=== PATIENT | male | born 1960 | race African-American/Black ===

== ENCOUNTER 2020-07-01 12:39 | Inpatient (IN) | payer MEDICARE, OTHER ==
[~2020-07-01] VITALS: Ht 180.3 cm; Wt 77.6 kg
--- NOTE | 2020-07-01 12:50 | NUR ---
tisha, from [facility], hyperglycemia BS 346. PATIENT A/OX4, BREATHING EVEN AND UNLABORED, NO SOB NOTED. PLACED ON THE PAINT STOCK CLERK. NEEDS ATTENDED. KEPT COMFORTABLE.
[2020-07-01] MEDS ORDERED: IV NS 0.9% 1,000 ML BAG IV ONE (13:30)
[2020-07-01 13:38] LABS: BASOPHILS % (AUTO) 0.4 % (0.0-2.0); EOSINOPHILS % (AUTO) 5.6 % (0.0-6.0); HEMATOCRIT 40 % (39-51); HEMOGLOBIN 13.3 g/dL (13.5-17.5); LYMPHOCYTES # (AUTO) 2.1 /CMM (0.8-4.8); LYMPHOCYTES % (AUTO) 27.1 % (20.0-44.0); MEAN CORPUSCULAR HGB CONC 33 g/dl (31.0-36.0); MEAN CORPUSCULAR VOLUME 94 fL (80-96); MONOCYTES # (AUTO) 0.9 /CMM (0.1-1.30); MONOCYTES % (AUTO) 10.8 % (2.0-12.0); NEUTROPHILS # (AUTO) 4.4 /CMM (1.8-8.9); NEUTROPHILS % (AUTO) 56.1 % (43.0-81.0); PLATELET COUNT (AUTO) 241 /CMM (150-450); RED BLOOD CELL COUNT(AUTO) 4.31 MIL/uL (4.5-6.0); WHITE BLOOD COUNT (AUTO) 7.9 K/uL (4.3-11.0)
[2020-07-01 13:48] LABS: CALCIUM, SERUM 8.8 mg/dL (8.5-10.1); CARBON DIOXIDE 27 mmol/L (21-32); CHLORIDE 100 mmol/L (98-107); GLUCOSE 339 mg/dL (74-106); SODIUM SERUM 134 mmol/L (136-145); UREA NITROGEN, BLOOD 10 mg/dL (7-18)
[2020-07-01 13:53] LABS: ALANINE AMINOTRANSFERASE 18 U/L (12-78); ALBUMIN 3.3 g/dL (3.4-5.0); ALKALINE PHOSPHATASE 85 U/L (46-116); ASPARTATE AMINOTRANSFERASE 14 U/L (15-37); BILIRUBIN,DIRECT 0.1 mg/dL (0.0-0.2); BILIRUBIN,TOTAL 0.4 mg/dL (0.2-1.0); LIPASE 212 U/L (73-393); TOTAL PROTEIN, SERUM 6.9 g/dL (6.4-8.2)
[2020-07-01 14:11] LABS: BILIRUBIN,URINE Negative (NEGATIVE); COLOR,URINE YELLOW (YELLOW); LEUKOCYTE ESTERASE ,URINE Negative (NEGATIVE); NITRITE, URINE Negative (NEGATIVE); PROTEIN,URINE Negative (NEGATIVE); UGLUCOSE 500 MG/DL mg/dL (NEGATIVE); UROBILINOGEN,URINE 0.2 EU/dL (0.2)
[2020-07-01] MEDS ORDERED: FLUO20CA36 PO (14:17)
[2020-07-01] MEDS ORDERED: QUET25TA PO (14:17)
[2020-07-01] MEDS ORDERED: ZOLPIDEM TARTRATE 5 MG TABLET PO PRN (14:30)
[2020-07-01] MEDS ORDERED: Z GUARD REMEDY 2 OZ OINT TP PRN (14:30)
[2020-07-01] MEDS ORDERED: INSULIN REGULAR, HUMAN 100 UNIT/ML 3 ML VIAL SQ PRN (14:30)
[2020-07-01] MEDS ORDERED: ONDANSETRON HCL/PF 4 MG/2 ML VIAL IVP PRN (14:30)
[2020-07-01] MEDS ORDERED: DEXTROSE 50%-WATER 50 ML DISP.SYRIN IV PRN (14:30)
[2020-07-01] MEDS ORDERED: MAGNESIUM HYDROXIDE 30 ML UDC PO PRN (14:30)
[2020-07-01] MEDS ORDERED: ACETAMINOPHEN 325 MG TABLET PO PRN (14:30)
[2020-07-01] MEDS ORDERED: IV NS 0.9% 1,000 ML IV PRN (14:30)
[2020-07-01] MEDS ORDERED: HYDROCODONE/APAP 5/325MG TABLET PO PRN (14:30)
[2020-07-01] MEDS ORDERED: MAG HYDROX/AL HYDROX/SIMETH 30 ML UDC PO PRN (14:30)
--- NOTE | 2020-07-01 14:36 | NUR ---
COVID SWAB SENT.
--- NOTE | 2020-07-01 18:24 | NUR ---
PROVIDED DINNER TRAY. PATIENT A/OX4,RESTING. NO DISTRESS NOTED.
--- NOTE | 2020-07-01 18:50 | NUR ---
room 105, give report after shift per house sup Addendum: 07/01/20 at 1850 by JEANE room 109, give report after shift per house sup
[2020-07-01] MEDS: BLOOD SUGAR DIAGNOSTIC 1 EACH STRIP VI SCH ×2 (19:24→22:11)
--- NOTE | 2020-07-01 19:36 | NUR ---
ASSIGNED BED 109
--- NOTE | 2020-07-01 20:11 | NUR ---
REPORT GIVEN TO ROLANDO GEE FOR [facility].
[2020-07-01 20:20] VITALS: BP 131/76
--- NOTE | 2020-07-01 20:20 | NUR ---
RN ADMITTING NOTE RECEIVED PATIENT FROM ER VIA [facility] ACCOMPANIED BY GIANCARLO GEE AND 1 OTHER ER STAFF; ADMITTING DIAGNOSIS OF FAILURE TO THRIVE, PCR RESULT PENDING. PATIENT AWAKE, ALERT AND ORIENTED X4. DENIES PAIN. IN NO S/SX OF ACUTE DISTRESS AT THIS TIME. NO SOB NOTED. PATIENT'S BREATHING IS EVEN AND UNLABORED. SATURATION 98% ON ROOM AIR, HR IS 78. NOTED IV SITE AT LAC 18G, PATENT AND FLUSHING WELL. NO S/S OF INFECTION OR INFILTRATION. NO SKIN ISSUES NOTED. PATIENT KEPT CLEAN , DRY AND COMFORTABLE. SAFETY MEASURES IMPLEMENTED. HEAD OF BED ELEVATED. BED IS LOCKED, IN LOWEST POSITION AND SIDE RAILS UP. CALL LIGHT WITHIN REACH OF THE PATIENT. ISOLATION PRECAUTIONS IN PLACE. WILL CONTINUE TO MONITOR AND REASSESS FOR ANY CHANGES. WILL ATTEND TO ALL MD ADMITTING ORDERS.
[2020-07-01] MEDS: *INSULIN REGULAR(HUMULIN R)HUM 100 UNIT/ML VIAL SQ PRN (22:12)
[2020-07-02 06:06] LABS: BASOPHILS % (AUTO) 0.5 % (0.0-2.0); EOSINOPHILS % (AUTO) 6.3 % (0.0-6.0); HEMATOCRIT 40 % (39-51); HEMOGLOBIN 13.2 g/dL (13.5-17.5); LYMPHOCYTES % (AUTO) 29.2 % (20.0-44.0); MEAN CORPUSCULAR HGB CONC 33 g/dl (31.0-36.0); MEAN CORPUSCULAR VOLUME 93 fL (80-96); MONOCYTES # (AUTO) 0.8 /CMM (0.1-1.30); MONOCYTES % (AUTO) 11.4 % (2.0-12.0); NEUTROPHILS # (AUTO) 3.6 /CMM (1.8-8.9); NEUTROPHILS % (AUTO) 52.6 % (43.0-81.0); PLATELET COUNT (AUTO) 242 /CMM (150-450); RED BLOOD CELL COUNT(AUTO) 4.28 MIL/uL (4.5-6.0); WHITE BLOOD COUNT (AUTO) 6.9 K/uL (4.3-11.0)
[2020-07-02 06:32] LABS: CALCIUM, SERUM 8.5 mg/dL (8.5-10.1); CREATININE 0.9 mg/dL (0.6-1.3); MAGNESIUM 1.9 mg/dL (1.8-2.4); PHOSPHORUS 3.8 mg/dL (2.5-4.9)
[2020-07-02] MEDS: BLOOD SUGAR DIAGNOSTIC 1 EACH STRIP VI SCH ×4 (07:30→21:03)
[2020-07-02 08:00] VITALS: BP 120/83
[2020-07-02] MEDS: FLUOXETINE HCL 20 MG CAPSULE PO SCH (09:18)
[2020-07-02] MEDS: *INSULIN REGULAR(HUMULIN R)HUM 100 UNIT/ML VIAL SQ PRN ×3 (09:22→21:03)
[2020-07-02 09:57] LABS: EOSINOPHILS % (MANUAL) 5 % (0-4); LYMPHOCYTES % (MANUAL) 22 % (16-48); MONOCYTES % (MANUAL) 14 % (0-11.0); NEUTROPHILS % (MANUAL) 59 (42-76)
--- NOTE | 2020-07-02 13:53 | NUR ---
alert, oriented , did not know exactly when he is hospitalized, a resident of [facility] x 4mos. first bs this am, 197, iv fluid not running when first seen. Connected him to the pump, until just now, iv site got infiltrated. attempted to reinsert a new HL, so he can get all the fluids he needs, adamantly refused. " i have enough fluid, i dont want anything on my arm". his request honored, and left message to the attending, dr Corbett
[2020-07-02 16:00] VITALS: BP 132/74
[2020-07-02 17:49] VITALS: BP 132/74
--- NOTE | 2020-07-02 17:56 | NUR ---
No return text from the attending, concerning a new HL, patient still refused . Anx[facility] to get out of here " [facility], it is [facility] Holiday, reoriented him the holiday will be next Friday, still insists to go back to the NH. Per attending, he will speak to the patient in am. (already spoke to the patient today)
--- NOTE | 2020-07-02 19:30 | NUR ---
RN OPENING NOTE REPORT RECIEVED FROM TRINA GEE. PATIENT IN BED IN NO APPARENT DISTRESS. PATIENT REFUSING NEW HEPLOCK INSERTION REFUSING IV FLUIDS. PT STATES, "IM SUPPOSED TO LEAVE TOMORROW." PT ALSO REFUSING EVENING VITAL SIGNS, STATES "JUST LEAVE ME ALONE. IM OK I JUST WAITING TO GO HOME." PER REPORT NURSE NOTIFIED THE DOCTOR. WILL CONT TO MONITOR PATIENT PER PATIENT HE ATE 100% OF DINNER. PT DRINKING WATER AND FLUIDS.
[2020-07-02] MEDS: QUETIAPINE FUMARATE 25 MG TABLET PO SCH (21:03)
[2020-07-03 04:00] VITALS: BP 117/69
[2020-07-03] MEDS: *INSULIN REGULAR(HUMULIN R)HUM 100 UNIT/ML VIAL SQ PRN ×4 (07:47→22:00)
[2020-07-03 08:00] VITALS: BP 127/78
[2020-07-03] MEDS: FLUOXETINE HCL 20 MG CAPSULE PO SCH (08:01)
[2020-07-03] MEDS: BLOOD SUGAR DIAGNOSTIC 1 EACH STRIP VI SCH ×4 (08:01→22:13)
--- NOTE | 2020-07-03 09:30 | NUR ---
RN OPENING NOTE PATIENT IS IN BED WITH HOB AT SEMI FOWLERS POSITION. PATIENT IS ON ROOM AIR WITH NO SIGNS OF LABORED BREATHING. PATIENT IS AOX3. BED IS LOCKED IN THE LOWEST POSITION, 3 GUARD RAILS RAISED, CALL KRUEGER WITHIN REACH, AND ALL HOSPITAL SAFETY PRECAUTIONS ARE BEING FOLLOWED. WILL CONTINUE TO MONITOR THROUGHOUT SHIFT.
--- NOTE | 2020-07-03 11:55 | NUR ---
RN NOTE PATIENT REFUSED IV ACCESS. EDUCATED PATIENT ON IMPORTANCE OF IV HYDRATION. PATIENT STILL REFUSED.
[2020-07-03 16:00] VITALS: BP 142/81
--- NOTE | 2020-07-03 19:08 | NUR ---
RN NOTE PATIENT REMAINED STABLE THROUGHOUT SHIFT AND ALL DUE MEDS GIVEN. CURRENTLY ON ROOM AIR WITH NO SIGNS OF LABORED BREATHING. WILL ENDORSE TO SUPERVISOR AIRCRAFT CLEANING RN FOR [facility].
[2020-07-03 20:00] VITALS: BP 134/81
--- NOTE | 2020-07-03 20:43 | NUR ---
RN NOTE PATIENT IN BED AWAKE. A/O X3, ABLE TO MAKE NEEDS KNOWN. ON ROOM AIR, O2 SAT 97%. NO S/S OF ANY RESPIRATORY DISTRESS. DENIES ANY PAIN AT THIS TIME. NO IV ACCES, PER REPORT PATIENT IS REFUSING. BED LOCKED AND IN LOWEST POSITION. CALL LIGHT WITHIN REACH. ALL NEEDS ANTICIPATED.
[2020-07-03] MEDS: QUETIAPINE FUMARATE 25 MG TABLET PO SCH (22:13)
--- NOTE | 2020-07-03 22:30 | NUR ---
OFFERED PATIENT TO INSERT IV ACCESS AND PATIENT REFUSED. RISKS AND BENEFITS EXPLAINED X3. STILL STRONGLY REFUSED. CALL LIGHT WITHIN REACH. ALL NEEDS ANTICIPATED.
[2020-07-04 04:00] VITALS: BP 115/71
--- NOTE | 2020-07-04 06:50 | NUR ---
RN NOTE PATIENT A/O X3. ON ROOM AIR, O2 SAT 97%. RESPIRATIONS EVEN AND UNLABORED. SO SIGNIFICANT CHANGES NOTED DURING THIS SHIFT. ALL DUE MEDS GIVEN ORDERED AND TOLERATED WELL. BED LOCKED AND IN LOWEST POSITION. CALL LIGHT WITHIN REACH. WILL ENDORSE TO AM SHIFT.
--- NOTE | 2020-07-04 07:15 | NUR ---
ms rn received on bed, awake,alert,oriented x4,not in any form of distress, respirations even and unlabored,no sob noted, patient wants to go home already at this time, will monitor patient.
[2020-07-04] MEDS: BLOOD SUGAR DIAGNOSTIC 1 EACH STRIP VI SCH ×3 (07:30→12:00)
--- NOTE | 2020-07-04 07:40 | NUR ---
ms rn was seen by dr. alva w/ order to go home today, pillowcase cutter is aware.
--- NOTE | 2020-07-04 07:50 | NUR ---
ms rn patient refused bs check.
[2020-07-04 08:00] VITALS: BP 125/83
[2020-07-04] MEDS: FLUOXETINE HCL 20 MG CAPSULE PO SCH (09:18)
[2020-07-04] MEDS ORDERED: CARB-300 PO (10:20)
[2020-07-04 12:00] VITALS: BP 110/60
--- NOTE | 2020-07-04 12:00 | NUR ---
ms rn refused blood sugar again, explain importance but still just want to go home, pickle processor at 2 pm, patient aware.
--- NOTE | 2020-07-04 14:00 | NUR ---
ms rn tried to reach telephone number of [facility], to notify for d/c but it's a wrong number, no existing number.
--- NOTE | 2020-07-04 14:20 | NUR ---
ms rn patient went back to sn[facility],no distress noted.
== END 2020-07-04 14:00 | DRG 637 ==
LOC: ER 12:44 → TELE1 19:45 → MEDSG1 20:40
PROVIDERS: ADMIT Internal Medicine; ATTEND Internal Medicine
DX: E11.00 Type 2 diabetes mellitus with hyperosmolarity without nonketotic hyperglycemic-hyperosmolar coma (NKHHC) (principal); E43 Unspecified severe protein-calorie malnutrition; E87.1 Hypo-osmolality and hyponatremia; E86.0 Dehydration; J44.9 Chronic obstructive pulmonary disease, unspecified; Z68.23 Body mass index [BMI] 23.0-23.9, adult; Z88.0 Allergy status to penicillin; E86.1 Hypovolemia; E11.65 Type 2 diabetes mellitus with hyperglycemia; R29.6 Repeated falls; R62.7 Adult failure to thrive; G20 Parkinson's disease
CPT/HCPCS: 36415; 71045-TC; 80048-TC; 80061-TC; 80076-TC; 82962-TC; 83690-TC; 83735-TC; 84100-TC; 84484-TC; 85025-TC; 87081-TC; 97116-TC; 97530-TC; G0378; J1815; J7030; U0003